=== PATIENT | female | born 1970 | race Two or more races ===

== ENCOUNTER 2019-05-31 13:46 | Emergency (ER) | payer MEDICAID ==
[2019-05-31] MEDS ORDERED: Acetaminophen/HYDROcodone 325-5 MG Tab PO ONE (13:50)
--- NOTE | 2019-05-31 13:56 | EDM.PDOC ---
ED HPI GENERAL MEDICAL PROBLEM - General Stated Complaint: TWISTED ANKLE Time Seen by Provider: 05/31/19 13:48 Source of Information: Reports: Patient History Limitations: Reports: No Limitations - History of Present Illness INITIAL COMMENTS - FREE TEXT/NARRATIVE: HISTORY AND PHYSICAL: History of present illness: Patient is a 48-year-old female who presents to the emergency room by EMS with concerns of left ankle pain. She was stepping out of her vehicle when she rolled her left ankle. She had immediate and severe pain to the left lateral ankle. States she is unable to bear weight. Denies hitting her head or having any loss of consciousness. Denies any other extremity involvement. Offers no systemic complaints. Review of systems: As per history of present illness and below otherwise all systems reviewed and negative. Past medical history: As per history of present illness and as reviewed below otherwise noncontributory. Surgical history: As per history of present illness and as reviewed below otherwise noncontributory. Social history: See social history for further information Family history: As per history of present illness and as reviewed below otherwise noncontributory. Physical exam: General: Developed and well-nourished 48-year-old female. Alert and appropriate for age. Nontoxic-appearing and in moderate distress due to pain. Vital signs are stable and have been reviewed by me. HEENT: Atraumatic, normocephalic, pupils equal and reactive bilaterally, negative for conjunctival pallor or scleral icterus, mucous membranes moist, TMs normal bilaterally, throat clear, neck supple, nontender, trachea midline. No drooling or trismus noted. No meningeal signs. No hot potato voice noted. Lungs: Clear to auscultation, breath sounds equal bilaterally, chest nontender. Heart: S1S2, regular rate and rhythm without overt murmur Abdomen: Soft, nondistended, nontender. Negative for masses or hepatosplenomegaly. Negative for costovertebral tenderness. Skin: Intact, warm, dry. No lesions or rashes noted. Extremities: Left lateral malleolus tenderness with palpation. Strong pedal and pretibial pulse. Denies any numbness or tingling of the affected extremity. Otherwise moves all extremities per self without difficulty or deficits, negative for cords or calf pain. Neurovascular unremarkable. Neuro: Awake, alert, oriented. Cranial nerves II through XII unremarkable. Cerebellum unremarkable. Motor and sensory unremarkable throughout. Exam nonfocal. Notes: Story shows ankle more T's is mildly asymmetric. Mild displacement of the lateral malleolus. Soft tissue swelling is noted. Patient continues to have good CMS and strong pedal pretibial pulse. Posterior splint placed for comfort and nonweightbearing purposes due to fracture. We did discuss following up with the orthopedic provider, calling Sunday to set up an appointment. She will also be placed on her expedited follow-up list. Medication and supportive care measures were reviewed and discussed. Voices understanding and is agreeable to plan of care. Denies any further questions or concerns at this time. Diagnostics: X-ray Therapeutics: Custom fiberglass splint, crutches Prescription: [place] Impression: Ankle, Left Plan: 1. Rest, ice, elevate the affected extremity. Please keep the splint on and use the crutches to be nonweightbearing, until you have been seen by the orthopedic provider. 2. Tylenol and/or Ibuprofen as needed for pain management. [place] for moderate to severe pain. You can take 1-2 tabs every 4-6 hours as needed. This medication may cause drowsiness, so do not drive or take if you need to be functioning outside the house. 3. Follow up with the Orthopedic provider as we discussed, call Sunday to set up an appointment. Return to the ED as needed and as discussed. Definitive disposition and diagnosis as appropriate pending reevaluation and review of above. Left ankle Pain Score (Numeric/FACES): 10 - Related Data Allergies Allergy/AdvReac Type Severity Reaction Status Date / Time No Known Allergies Allergy Verified 05/31/19 13:52 Home Meds: Home Meds Acetaminophen/HYDROcodone [[place] 325-5 MG] 1 tab PO Q4H #20 tablet 05/31/19 [Rx] Review of Systems - Review of Systems Review Of Systems: Comprehensive ROS is negative, except as noted in HPI. ED EXAM, GENERAL - Physical Exam Exam: See Below (See dictation) Course - Vital Signs Last Recorded V/S: Last Vital Signs Temp 98.7 F 05/31/19 13:50 Pulse 95 05/31/19 13:50 Resp 18 05/31/19 13:50 BP 120/103 H 05/31/19 13:50 Pulse Ox 98 05/31/19 13:50 - Orders/Labs/Meds Orders: Active Orders 24 hr Category Date Time Status DME for Discharge [COMM] Stat Oth 05/31/19 14:16 Ordered Meds: Medications Discontinued Medications Generic Name Dose Route Start Last Admin Trade Name Shyanne PRN Reason Stop Dose Admin Hydrocodone Bitart/Acetaminophen 1 tab 05/31/19 13:50 05/31/19 14:06 [place] 325-5 Mg PO 05/31/19 13:51 1 tab ONETIME ONE Administration Departure - Departure Time of Disposition: 14:43 Disposition: Home, Self-Care 01 Clinical Impression: Ankle fracture, left Qualifiers: Encounter type: initial encounter Fracture type: closed Qualified Code(s): S82.892A - Other fracture of left lower leg, initial encounter for closed fracture - Discharge Information Prescriptions: Acetaminophen/HYDROcodone [[place] 325-5 MG] 1 tab PO Q4H #20 tablet Instructions: Ankle Fracture, [id number] Referrals: PCP,Unknown [Primary Care Provider] - Additional Instructions: The following information is given to patients seen in the emergency department who are being discharged to home. This information is to outline your options for follow-up care. We provide all patients seen in our emergency department with a follow-up referral. The need for follow-up, as well as the timing and circumstances, are variable depending upon the specifics of your emergency department visit. If you don't have a primary care physician on staff, we will provide you with a referral. We always advise you to contact your personal physician following an emergency department visit to inform them of the circumstance of the visit and for follow-up with them and/or the need for any referrals to a consulting specialist. The emergency department will also refer you to a specialist when appropriate. This referral assures that you have the opportunity for follow-up care with a specialist. All of these measure are taken in an effort to provide you with optimal care, which includes your follow-up. Under all circumstances we always encourage you to contact your private physician who remains a resource for coordinating your care. When calling for follow-up care, please make the office aware that this follow-up is from your recent emergency room visit. If for any reason you are refused follow-up, please contact the [facility] Emergency Department at and asked to speak to the emergency department charge nurse. [facility] - [facility] Professional Building [address] [place] [address], [address] [place] [address] 1. Rest, ice, elevate the affected extremity. Please keep the splint on and use the crutches to be non-weightbearing, until you have been seen by the orthopedic provider. 2. Tylenol and/or Ibuprofen as needed for pain management. [place] for moderate to severe pain. You can take 1-2 tabs every 4-6 hours as needed. This medication may cause drowsiness, so do not drive or take if you need to be functioning outside the house. 3. Follow up with the Orthopedic provider as we discussed, call Sunday to set up an appointment. Return to the ED as needed and as discussed. Sepsis Event Note - Focused Exam Vital Signs: Vital Signs Temp Pulse Resp BP Pulse Ox 05/31/19 13:50 98.7 F 95 18 120/103 H 98 Date Exam was Performed: 05/31/19 Time Exam was Performed: 14:42 - My Orders Last 24 Hours: My Active Orders 05/31/19 14:16 DME for Discharge [COMM] Stat - Assessment/Plan Last 24 Hours: My Active Orders 05/31/19 14:16 DME for Discharge [COMM] Stat
--- NOTE | 2019-05-31 14:37 | CR ---
Left ankle: 3 views left ankle were obtained. Comparison: No previous ankle study. Mildly displaced oblique fracture involving the lateral malleolus is seen. Ankle mortise is mildly asymmetric. Plantar spur is seen. No additional fracture or other bony abnormality is identified. Soft tissue swelling is seen. Impression: 1. Ankle mortise is mildly asymmetric. 2. Mildly displaced lateral malleolus fracture. 3. Soft tissue swelling. Diagnostic code #3 This report was dictated in MDT
== END 2019-05-31 15:24 | disposition home or self-care (01) ==
LOC: MW.ED 13:46
DX: S82.62XA Displaced fracture of lateral malleolus of left fibula, initial encounter for closed fracture (principal); X50.9XXA Other and unspecified overexertion or strenuous movements or postures, initial encounter
CPT/HCPCS: 29515; 73610; 99284; A9270; 99283

== ENCOUNTER 2019-06-01 00:27 | Emergency (ER) | payer MEDICAID ==
--- NOTE | 2019-06-01 00:49 | EDM.PDOC ---
ED HPI GENERAL MEDICAL PROBLEM - General Chief Complaint: General Stated Complaint: ANKLE INJURY Time Seen by Provider: 06/01/19 00:30 - History of Present Illness INITIAL COMMENTS - FREE TEXT/NARRATIVE: Female presents status post fall. The patient was seen here earlier today after miss stepping over a curb and fracturing her left ankle. She went home and was attempting to get to the toilet with her crutches and she suffered a mechanical fall without head trauma or loss of consciousness. She feels like she hurt her ankle again. Of note, before the fall she felt like her face was red and warm and she may have had a scratchy throat about 20 minutes after taking her hydrocodone pill. In route EMS gave her 50 of Benadryl, 2 of Versed , and 50 of fentanyl. Patient denies any head trauma, any headache, any confusion any vision changes, any focal weakness, any abdominal pain, any vision changes. Patient denies any recent illnesses or coughing or fevers. Patient endorses no pain for me at the bedside. Previously the pain was sharp in 6/10 in severity. LEft Ankle Pain Score (Numeric/FACES): 10 - Related Data Allergies Allergy/AdvReac Type Severity Reaction Status Date / Time hydrocodone Allergy Other Verified 06/01/19 00:40 Home Meds: Home Meds Naproxen Sodium 275 mg PO BID PRN 7 Days #14 tablet 06/01/19 [Rx] Past Medical History HEENT History: Reports: None Cardiovascular History: Reports: None Respiratory History: Reports: None Gastrointestinal History: Reports: None Genitourinary History: Reports: None DIRECTOR CORPORATE History: Reports: None Musculoskeletal History: Reports: None Neurological History: Reports: None Psychiatric History: Reports: None Endocrine/Metabolic History: Reports: None Hematologic History: Reports: None Immunologic History: Reports: None Oncologic (Cancer) History: Reports: None Dermatologic History: Reports: None - Infectious Disease History Infectious Disease History: Reports: None - Past Surgical History Head Surgeries/Procedures: Reports: None HEENT Surgical History: Reports: None Cardiovascular Surgical History: Reports: None Respiratory Surgical History: Reports: None GI Surgical History: Reports: None Female Surgical History: Reports: None Endocrine Surgical History: Reports: None Neurological Surgical History: Reports: None Other Musculoskeletal Surgeries/Procedures:: Left Tibia Fracture Oncologic Surgical History: Reports: None Dermatological Surgical History: Reports: None Social & Family History - Family History Family Medical History: Noncontributory - Tobacco Use Smoking Status *Q: Light Tobacco Smoker Years of Tobacco use: 10 Packs/Tins Daily: 0 - Caffeine Use Caffeine Use: Reports: None - Recreational Drug Use Recreational Drug Use: No ED ROS GENERAL - Review of Systems Review Of Systems: Comprehensive ROS is negative, except as noted in HPI. ED EXAM, GENERAL - Physical Exam Exam: See Below Free Text/Narrative:: General: No acute distress. Comfortable. Heent: Examination revealed no pallor, no icterus, no lymphadenopathy. The patient has normal posterior pharynx, moist mucous membranes. Atraumatic skull. Neck: Supple. No JVD. No rigidity. Heart: Normal rate. Reg rhythm. No murmurs appreciated. Back: No step-offs. Nontender palpation for the complete spine. Hammer percussion also negative. Lungs: Bilaterally clear to auscultation. No focal findings. Abdomen: Nontender, non-distended, soft, no CVA tenderness. Neuro: Pt is moving all four extremities. EOMI. PERRL. Normal speech. Skin: Exposed areas appeared normally perfused, warm, normal color with no meaningful rashes or lesions. Extremities: Lateral malleolar swelling on the left lower extremity. Patient can move her toes. Excellent DP pulse. Bilateral knees range smoothly painlessly. Bilateral hips range smoothly painlessly. Midfoot is nontender to compression on the dorsal and volar surfaces of the foot. Calf compartments are soft. Lateral malleolus is nontender. Course - Vital Signs Text/Narrative:: Patient presents status post second fall within 24 hours. Mechanical fall with no other injuries except for discomfort where her previous fracture is. On exam her midfoot is nontender. Toes are nontender to flexion and extension. Excellent DP pulse. On arrival and also again on reevaluation at 2:15 AM the patient reports no pain whatsoever. So she has significant pain with movement but the pain dissipates this of course argues strongly against compartment syndrome. There is no clear indication this patient had a serious allergic reaction previous. Patient will likely be resplinted for comfort the patient will follow up with orthopedics. Patient feels much better after splint was replaced with a full Parrish splint which is a combination of posterior slab and stirrup. This was placed by nursing. Please see their note. Following placement, patient had excellent sensation and motor and pulses were intact. Last Recorded V/S: Last Vital Signs Temp 98.1 F 06/01/19 02:44 Pulse 71 06/01/19 02:44 Resp 20 06/01/19 02:44 BP 119/99 H 06/01/19 02:44 Pulse Ox 100 06/01/19 02:44 - Orders/Labs/Meds Orders: Active Orders 24 hr Category Date Time Status DME for Discharge [COMM] Stat Oth 06/01/19 02:34 Ordered Meds: Medications Discontinued Medications Generic Name Dose Route Start Last Admin Trade Name Freq PRN Reason Stop Dose Admin Haloperidol Lactate 2.5 mg 06/01/19 02:38 06/01/19 02:46 Haldol IM 06/01/19 02:39 2.5 mg ONETIME ONE Administration Departure - Departure Time of Disposition: 02:31 Disposition: Home, Self-Care 01 Condition: Good Clinical Impression: Ankle fracture, lateral malleolus, closed Qualifiers: Encounter type: subsequent encounter Fracture alignment: nondisplaced Laterality: left Fracture healing: with routine healing Qualified Code(s): S82.65XD - Nondisplaced fracture of lateral malleolus of left fibula, subsequent encounter for closed fracture with routine healing - Discharge Information Prescriptions: Naproxen Sodium 275 mg PO BID PRN 7 Days #14 tablet PRN Reason: Pain (Moderate 4-6) Instructions: Cast or Splint Care, Adult, Sqgg-eg-Aagh, Ankle Fracture, Easy-to -Read Referrals: PCP,None [Primary Care Provider] - Forms: ED Department Discharge Care Plan Goals: The following information is given to patients seen in the emergency department who are being discharged to home. This information is to outline your options for follow-up care. We provide all patients seen in our emergency department with a follow-up referral. The need for follow-up, as well as the timing and circumstances, are variable depending upon the specifics of your emergency department visit. If you don't have a primary care physician on staff, we will provide you with a referral. We always advise you to contact your personal physician following an emergency department visit to inform them of the circumstance of the visit and for follow-up with them and/or the need for any referrals to a consulting specialist. The emergency department will also refer you to a specialist when appropriate. This referral assures that you have the opportunity for follow-up care with a specialist. All of these measure are taken in an effort to provide you with optimal care, which includes your follow- up. Under all circumstances we always encourage you to contact your private physician who remains a resource for coordinating your care. When calling for follow-up care, please make the office aware that this follow-up is from your recent emergency room visit. If for any reason you are refused follow-up, please contact the [facility] Emergency Department at and asked to speak to the emergency department charge nurse. [facility] [address] [place] [id number] [facility] [address] [place] [id number] Sepsis Event Note - Evaluation Sepsis Screening Result: No Definite Risk - Focused Exam Vital Signs: Vital Signs Temp Pulse Resp BP BP Pulse Ox 06/01/19 02:44 98.1 F 71 20 119/99 H 100 06/01/19 00:38 97.2 F 75 16 129/83 97 06/01/19 00:37 97.3 F 75 16 129/83 97 Date Exam was Performed: 06/01/19 Time Exam was Performed: 05:19 - My Orders Last 24 Hours: My Active Orders 06/01/19 02:34 DME for Discharge [COMM] Stat - Assessment/Plan Last 24 Hours: My Active Orders 06/01/19 02:34 DME for Discharge [COMM] Stat
--- NOTE | 2019-06-01 02:16 | CR ---
INDICATION: Trauma TECHNIQUE: Two views left tibia and fibula COMPARISON: None FINDINGS: Bones: Fracture distal shaft of the fibula demonstrated on lateral view only. Joint spaces: Unremarkable. Soft tissues: Unremarkable. IMPRESSION: Fracture distal shaft of the fibula demonstrated on the lateral view only. Dictated by Evelio Loving MD @ 06/01/2019 2:15:54 AM Dictated by: Evelio Loving MD @ 06/01/2019 02:15:59 (Electronically Signed)
[2019-06-01] MEDS ORDERED: Haloperidol Lactate 5 MG/ML SDV IM ONE (02:38)
== END 2019-06-01 03:02 | disposition home or self-care (01) ==
LOC: MW.ED 00:27
DX: S82.65XA Nondisplaced fracture of lateral malleolus of left fibula, initial encounter for closed fracture (principal); F17.200 Nicotine dependence, unspecified, uncomplicated; Z88.5 Allergy status to narcotic agent; W19.XXXA Unspecified fall, initial encounter
CPT/HCPCS: 29515; 73590; 96372; 99284; J1630; 99283

== ENCOUNTER 2019-06-04 06:29 | Day surgery (SDC) | payer MEDICAID ==
[~2019-06-04 06:29] MED LIST: Lactated Ringers 1,000 ML IV SCH
[2019-06-04] MEDS ORDERED: Albuterol 0.083% 2.5 MG/3 ML Neb Soln NEB PRN (06:58)
[2019-06-04] MEDS ORDERED: 50% Dextrose in Water 50 ML Syringe IVPUSH PRN (06:58)
[2019-06-04] MEDS ORDERED: Sodium Chloride 0.9% 2.5 ML Syringe FLUSH PRN (06:58)
[2019-06-04] MEDS ORDERED: fentaNYL 100 MCG/2 ML SDV IVPUSH PRN (06:58)
[2019-06-04] MEDS ORDERED: Sodium Chloride 0.9% 10 ML Syringe FLUSH PRN (06:58)
[2019-06-04] MEDS ORDERED: Naloxone 0.4 MG/ML Syringe IVPUSH PRN (06:58)
[2019-06-04] MEDS ORDERED: EPINEPHrine 1:10,000 1 MG/10 ML Syringe IVPUSH PRN (06:58)
[2019-06-04] MEDS ORDERED: Sodium Chloride 0.9% 10 ML SDV IV PRN (06:58)
[2019-06-04] MEDS ORDERED: Atropine 0.1 MG/ML 10 ML Syringe IVPUSH PRN ×2 (06:58)
[2019-06-04] MEDS ORDERED: Midazolam 1 MG/ML 2 ML SDV ONE (07:05)
[2019-06-04] MEDS ORDERED: Midazolam 1 MG/ML 2 ML SDV IVPUSH ONE (07:19)
[2019-06-04] MEDS ORDERED: fentaNYL 50 MCG/ML SDV IVPUSH ONE (07:20)
[2019-06-04] MEDS ORDERED: Bupivacaine 0.5%/EPINEPHrine 1:200,000 10 ML SDV ONE (07:21)
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
[2019-06-04] MEDS ORDERED: ceFAZolin 2 GM in Premix Bag 1 BAG IV ONE (07:57)
[2019-06-04] MEDS ORDERED: ceFAZolin 1 GM Vial ONE (08:15)
[2019-06-04] MEDS ORDERED: Glycopyrrolate 0.2 MG/ML SDV ONE ×2 (08:19→08:27)
--- NOTE | 2019-06-04 09:12 | PCM.OPNOTE ---
- General Post-Op/Procedure Note Date of Surgery/Procedure: 06/04/19 Operative Procedure(s): orif left lateral malleolus Pre Op Diagnosis: left lateral malleolar fracture, closed Post-Op Diagnosis: Same Anesthesia Technique: Combo Spinal/Epidural, Moderate Sedation Primary Surgeon: Pedro Luis Xavier Fire Prevention Chief: Elle Witt EBL in mLs: 10 Complications: None Condition: Good
--- NOTE | 2019-06-04 09:41 | PCM.POSTAN ---
POST ANESTHESIA ASSESSMENT - MENTAL STATUS Mental Status: Alert - VITAL SIGNS Vital Signs: Last Vital Signs Temp 36 C L 06/04/19 09:23 Pulse 79 06/04/19 09:33 Resp 16 06/04/19 09:33 BP 115/74 06/04/19 09:33 Pulse Ox 99 06/04/19 09:33 - RESPIRATORY Respiratory Status: Respiratory Rate WNL, Airway Patent, O2 Saturation Stable - CARDIOVASCULAR CV Status: Pulse Rate WNL, Blood Pressure Stable - GASTROINTESTINAL GI Status: No Symptoms - PAIN Pain Score: 0 - POST OP HYDRATION Hydration Status: Adequate & Stable
[2019-06-04] MEDS ORDERED: Acetaminophen/oxyCODONE 325-5 MG Tab PO ONE (11:33)
--- NOTE | 2019-06-04 12:04 | OR ---
SURGEON: Pedro Luis Xavier DATE OF PROCEDURE: 06/04/2019 PREOPERATIVE DIAGNOSIS: Left lateral malleolar fracture, closed. POSTOPERATIVE DIAGNOSIS: Left lateral malleolar fracture, closed. PROCEDURE: Open reduction and internal fixation left lateral malleolus. GAMES DEALER: GERALDO Martinez. ROLE OF GAMES DEALER: Nurse practitioner, GERALDO Martinez, played an essential role in assisting in this case, helping to position the patient, retract structures as needed, as well as suturing and cutting sutures as indicated. Her presence improved patient's safety and decreased operative time. ANESTHESIA: Spinal plus conscious sedation. FLUID: Lactated Ringer's solution. ESTIMATED BLOOD LOSS: 10 mL. COMPLICATIONS: None. SPECIMEN: None. DISCHARGE DISPOSITION: Stable to PACU. HISTORY AND INDICATION FOR THE PROCEDURE: The patient was seen preoperatively in the clinic. She had been seen in the emergency department where the above fracture was confirmed on radiographs. Risks and goals of the procedure were explained to the patient. Informed consent was obtained. DETAILS OF PROCEDURE: The patient was seen preoperatively by myself and the Anesthesia staff in the preoperative holding area where the operative site was marked. She was brought to the operative suite by Anesthesia staff where spinal sedation plus conscious sedation was administered. All extremities were found to be well padded. A well-padded tourniquet was placed on the left thigh. The left lower extremity was then prepped and draped in a sterile manner. Time-out was called identifying the correct patient, the correct procedure, the correct site, and that antibiotics had been given within appropriate time. The left lower extremity was exsanguinated. Tourniquet was raised to 250 mmHg and taken down during closure. An incision was made from the tip of the lateral malleolus proximally about 10 cm. I used Jc to bluntly enter the area of the fracture site and then bluntly elevated soft tissues to avoid any injury to the superficial peroneal nerve, which was not encountered during the case. The fracture line was visualized. It was reduced nicely. I then used the lag technique to place a screw across the fracture site and then placed a small anatomic fibula plate. I then drilled and inserted screws into the plate, proximally 1st and then distally with lockers, and then confirmed good placement on AP and lateral radiographs. I used live fluoroscopy to range the ankle and stress it to make sure that the syndesmosis was not injured, which was not. My virtual office assistant copiously irrigated with saline, closed with 2-0 Vicryl subcutaneously, and 3-0 nylon on the skin, followed by Betadine-soaked Adaptic, fluffs, and an Naldo, and then the patient was placed into a walker boot. The patient is going to be nonweightbearing for 6 to 8 weeks. She was then discharged to the PACU in stable condition. [id number] / MODL /[id number]
--- NOTE | 2019-06-04 13:38 | PCM48HPAN ---
Post Anesthesia Note - EVALUATION WITHIN 48HRS OF ANESTHETIC Vital Signs in Normal Range: Yes Patient Participated in Evaluation: Yes Respiratory Function Stable: Yes Airway Patent: Yes Cardiovascular Function Stable: Yes Hydration Status Stable: Yes Pain Control Satisfactory: Yes Nausea and Vomiting Control Satisfactory: Yes Mental Status Recovered: Yes Vital Signs: Last Vital Signs Temp 98.4 F 06/04/19 09:45 Pulse 82 06/04/19 11:25 Resp 16 06/04/19 11:25 BP 131/74 06/04/19 11:25 Pulse Ox 98 06/04/19 11:25
--- NOTE | 2019-06-04 15:58 | CR ---
Left ankle: 2 fluoroscopic spot views were obtained of the left ankle utilizing C-arm device. Comparison: Previous left ankle study of 05/31/19. Study shows plate and screws to have been placed across previous lateral malleolus fracture. Ankle mortise is symmetric. Fluoroscopy time is given as 9.5 seconds. Impression: 1. Procedural study as noted above. Diagnostic code #2 This report was dictated in MDT
== END 2019-06-04 11:55 | disposition home or self-care (01) ==
LOC: MW.SDS 06:29
PROVIDERS: ATTEND Orthopaedic Surgery
DX: S82.62XA Displaced fracture of lateral malleolus of left fibula, initial encounter for closed fracture (principal); F17.210 Nicotine dependence, cigarettes, uncomplicated; E66.9 Obesity, unspecified; Z88.5 Allergy status to narcotic agent; X58.XXXA Exposure to other specified factors, initial encounter; Z68.31 Body mass index [BMI] 31.0-31.9, adult
CPT/HCPCS: 27792; 76000; 81025; A9270; C1713; J0690; J2250; J3010; J3490; J7120

== ENCOUNTER 2019-06-08 21:18 | Emergency (ER) | payer MEDICAID ==
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
[2019-06-08] MEDS ORDERED: Ketorolac 30 MG/ML SDV IVPUSH ONE (21:33)
--- NOTE | 2019-06-08 22:26 | CR ---
INDICATION: Recent surgery, foot injury TECHNIQUE: Foot radiograph 2 views left COMPARISON: None FINDINGS: Bone: No acute fractures or aggressive bone lesions are identified. Joint: The visualized hindfoot, midfoot, and forefoot joints are unremarkable in appearance. No significant ankle effusion is seen. Soft tissue: Unremarkable. No radiopaque foreign bodies are seen. IMPRESSION: 1. No acute osseous injuries or abnormalities are noted. Dictated by: Remi Hawkins MD @ 06/08/2019 22:25:40 (Electronically Signed)
--- NOTE | 2019-06-08 22:26 | CR ---
INDICATION: Recent surgery, repeat ankle injury TECHNIQUE: Ankle radiograph 3 views left COMPARISON: None FINDINGS: Bone: No acute fractures or aggressive bone lesions are identified. ORIF of the distal fibula with metallic side plate and into fragment screw noted. Joint: The ankle mortise joint and the visualized hindfoot joints are unremarkable in appearance. No significant ankle effusion is seen. Soft tissue: The K[place] fat pad and the Achilles` tendon is normal in appearance. No radiopaque foreign bodies are seen. IMPRESSION: 1. No acute osseous injuries or abnormalities are noted. Dictated by Remi Hawkins MD @ 06/08/2019 10:24:46 PM Dictated by: Remi Hawkins MD @ 06/08/2019 22:25:03 (Electronically Signed)
== END 2019-06-08 22:54 | disposition home or self-care (01) ==
LOC: MW.ED 21:18
DX: M25.572 Pain in left ankle and joints of left foot (principal); E66.9 Obesity, unspecified; Z68.38 Body mass index [BMI] 38.0-38.9, adult; Z88.5 Allergy status to narcotic agent; Z79.899 Other long term (current) drug therapy; W19.XXXA Unspecified fall, initial encounter
CPT/HCPCS: 73610; 73620; 96374; 99284; J1885

== ENCOUNTER 2019-06-26 23:01 | Emergency (ER) | payer MEDICAID, OTHER ==
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
== END 2019-06-26 23:35 | disposition home or self-care (01) ==
LOC: MW.ED 23:01
CPT/HCPCS: 99282; 99283

== ENCOUNTER 2019-07-06 08:22 | Emergency (ER) | payer MEDICAID ==
[2019-07-06] MEDS ORDERED: Ciprofloxacin/Dexamethasone 0.3-0.1% Otic Susp 7.5 ML Bottle EARBOTH STA (08:36)
[2019-07-06] MEDS ORDERED: Ibuprofen 600 MG Tab PO ONE (08:43)
[2019-07-06] MEDS ORDERED: Acetaminophen 325 MG Tab PO ONE (08:43)
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
== END 2019-07-06 09:20 | disposition home or self-care (01) ==
LOC: MW.ED 08:22
DX: H60.92 Unspecified otitis externa, left ear (principal); E66.9 Obesity, unspecified; F17.210 Nicotine dependence, cigarettes, uncomplicated; Z88.5 Allergy status to narcotic agent; Z68.30 Body mass index [BMI] 30.0-30.9, adult
CPT/HCPCS: 99282; A9270

== ENCOUNTER 2019-07-07 20:34 | Emergency (ER) | payer MEDICAID ==
[2019-07-07] MEDS ORDERED: Amoxicillin/Clavulanate K 875-125 MG Tab PO ONE (20:51)
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
== END 2019-07-07 21:09 | disposition home or self-care (01) ==
LOC: MW.ED 20:34
DX: H66.002 Acute suppurative otitis media without spontaneous rupture of ear drum, left ear (principal); Z88.5 Allergy status to narcotic agent; E66.9 Obesity, unspecified; Z68.30 Body mass index [BMI] 30.0-30.9, adult
CPT/HCPCS: 99282; A9270

== ENCOUNTER 2019-09-30 00:08 | Emergency (ER) | payer SELFPAY ==
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
== END 2019-09-30 01:10 | disposition left against medical advice (07) ==
LOC: MW.ED 00:08
DX: R00.0 Tachycardia, unspecified (principal); I10 Essential (primary) hypertension; E66.9 Obesity, unspecified; Z68.33 Body mass index [BMI] 33.0-33.9, adult; F17.200 Nicotine dependence, unspecified, uncomplicated; Z88.5 Allergy status to narcotic agent
CPT/HCPCS: 99282; 99284